=== PATIENT | male | born 1990 | race Caucasian/White ===

== ENCOUNTER 2017-07-26 09:00 | Emergency (ER) | payer SELFPAY ==
[2017-07-26 09:12] VITALS: BP 131/69
[2017-07-26] MEDS ORDERED: lamoTRIgine 100 MG Tab PO ONE (09:25)
--- NOTE | 2017-07-26 09:34 | EDM.PDOC ---
ED HPI GENERAL MEDICAL PROBLEM - General Chief Complaint: Medication Administration Stated Complaint: MEDICATION REFILL Time Seen by Provider: 07/26/17 09:09 Source of Information: Reports: Patient, RN Notes Reviewed History Limitations: Reports: No Limitations - History of Present Illness INITIAL COMMENTS - FREE TEXT/NARRATIVE: The patient states that he has had epilepsy since 10 or 11 years old. He states that it is not known why he has epilepsy. He states that he has been on Lamictal for the past 11 years. His current dose is 300 mg BID, ordinarily prescribed by a physician in [place], however, the patient has since moved to [place]. He states that he was seen by Dr. Aleksandr Matta in a clinic on 2016, where he received a refill medication incorrectly prescribed as 250 mg BID. He states that he ran out of his Lamictal after taking his p.m. dose last night. He can refill his current prescription, however, since today is , no pharmacies are open. He is requesting this morning's and tonight's doses from us. - Related Data Allergies Allergy/AdvReac Type Severity Reaction Status Date / Time No Known Allergies Allergy Verified 07/26/17 09:08 Home Meds: Home Meds lamoTRIgine [Lamictal] 300 mg PO BID 07/26/17 [History] Past Medical History Neurological History: Reports: Seizure Social & Family History - Tobacco Use Smoking Status *Q: Current Every Day Smoker Years of Tobacco use: 10 Packs/Tins Daily: 1 - Caffeine Use Caffeine Use: Reports: Coffee, Energy Drinks, Soda, Tea - Alcohol Use Alcohol Use History: Yes Alcohol Use Frequency: Socially - Recreational Drug Use Recreational Drug Use: Yes Drug Use in Last 12 Months: Yes Recreational Drug Type: Reports: Marijuana/Hashish Recreational Drug Use Frequency: Daily - Living Situation & Occupation Living situation: Reports: Single, with Family Occupation: Employed ([employer]) ED ROS GENERAL - Review of Systems Review Of Systems: See Below Constitutional: Reports: No Symptoms HEENT: Reports: No Symptoms Respiratory: Reports: No Symptoms Cardiovascular: Reports: No Symptoms Endocrine: Reports: No Symptoms GI/Abdominal: Reports: No Symptoms : Reports: No Symptoms Musculoskeletal: Reports: No Symptoms Skin: Reports: No Symptoms Neurological: Reports: No Symptoms Psychiatric: Reports: No Symptoms Hematologic/Lymphatic: Reports: No Symptoms Immunologic: Reports: No Symptoms ED EXAM, GENERAL - Physical Exam Exam: See Below Exam Limited By: No Limitations General Appearance: Alert, WD/WN, No Apparent Distress Eye Exam: Bilateral Eye: Normal Inspection Ears: Normal External Exam, Hearing Grossly Normal Nose: Normal Inspection, No Blood Throat/Mouth: Normal Inspection, Normal Lips, Normal Voice, No Airway Compromise Head: Atraumatic, Normocephalic Neck: Normal Inspection, Full Range of Motion Respiratory/Chest: No Respiratory Distress Neurological: Alert, Normal Cognition Psychiatric: Normal Affect Skin Exam: Warm, Dry, Intact, Normal Color Course - Vital Signs Last Recorded V/S: Last Vital Signs Temp 36.8 C 07/26/17 09:09 Pulse 79 07/26/17 09:09 Resp 18 07/26/17 09:09 BP 131/69 07/26/17 09:09 Pulse Ox 98 07/26/17 09:09 - Orders/Labs/Meds Meds: Medications Discontinued Medications Generic Name Dose Route Start Last Admin Trade Name Freq PRN Reason Stop Dose Admin Lamotrigine 600 mg 07/26/17 09:25 Lamotrigine PO 07/26/17 09:26 ONETIME ONE - Re-Assessments/Exams Free Text/Narrative Re-Assessment/Exam: 07/26/17 09:27 I have ordered Lamictal 600 mg. The patient will take 300 mg now, then the other 300 mg tonight. Since he can refill his current prescription for Lamictal , he can do so in the morning. Additionally, I will refer him to Dr. Rowe in the clinic. Departure - Departure Time of Disposition: 09:27 Disposition: Home, Self-Care 01 Condition: Good Clinical Impression: Medication requested - Discharge Information Referrals: PCP,None [Primary Care Provider] - Omar Do [Physician] - Additional Instructions: You were seen in the emergency room after running out of your Lamictal last night. You were given your morning dose of Lamictal in the ER, plus tonight's dose to take home. Refill your current prescription for Lamictal first thing tomorrow morning. Follow-up with Dr. Do in the clinic, to establish a primary care physician. If any other problems, please do not hesitate to return to the ER.
== END 2017-07-26 09:40 | disposition home or self-care (01) ==
LOC: JD.ED 09:00
DX: Z76.0 Encounter for issue of repeat prescription (principal); F17.210 Nicotine dependence, cigarettes, uncomplicated
CPT/HCPCS: 99282; A9270

== ENCOUNTER 2017-11-30 21:47 | Emergency (ER) | payer OTHER ==
[2017-11-30 21:57] VITALS: BP 121/64
--- NOTE | 2017-11-30 22:00 | EDM.PDOC ---
ED HPI GENERAL MEDICAL PROBLEM - General Chief Complaint: General Stated Complaint: TOOK TOO MUCH MEDICATION Time Seen by Provider: 11/30/17 22:00 - History of Present Illness INITIAL COMMENTS - FREE TEXT/NARRATIVE: 27-year-old male presents emergency room after taking one extra Lamictal. He takes 300 mg twice daily. He had inadvertently took an extra dose this evening he adamantly denies any wish to harm himself and states this was purely accidental the patient is been smoking marijuana tonight. They talked to the [facility] who thought maybe he should come in and get checked. Patient is doing okay at this time. Treatments STATEMENT SERVICES REPRESENTATIVE: Reports: Other (see below) Other Treatments STATEMENT SERVICES REPRESENTATIVE: called poison control headache Pain Score (Numeric/FACES): 4 - Related Data Allergies Allergy/AdvReac Type Severity Reaction Status Date / Time No Known Allergies Allergy Verified 11/30/17 21:57 Home Meds: Home Meds lamoTRIgine [Lamictal] 300 mg PO BID 07/26/17 [History] Past Medical History - Past Health History Medical/Surgical History: Denies Medical/Surgical History Neurological History: Reports: Seizure Social & Family History - Tobacco Use Smoking Status *Q: Current Every Day Smoker Years of Tobacco use: 10 Packs/Tins Daily: 1 - Caffeine Use Caffeine Use: Reports: Coffee, Energy Drinks, Soda, Tea - Recreational Drug Use Recreational Drug Use: Yes Drug Use in Last 12 Months: Yes Recreational Drug Type: Reports: Marijuana/Hashish Recreational Drug Use Frequency: Daily - Living Situation & Occupation Living situation: Reports: Single, with Family Occupation: Employed ([employer]) ED ROS GENERAL - Review of Systems Review Of Systems: See Below Constitutional: Reports: No Symptoms HEENT: Reports: No Symptoms Respiratory: Reports: No Symptoms Cardiovascular: Reports: No Symptoms : Reports: No Symptoms Musculoskeletal: Reports: No Symptoms Neurological: Reports: No Symptoms ED EXAM, GENERAL - Physical Exam Exam: See Below Exam Limited By: No Limitations General Appearance: Alert, No Apparent Distress Eye Exam: Bilateral Eye: EOMI, Normal Inspection Ears: Normal External Exam, Normal Canal, Hearing Grossly Normal, Normal TMs Nose: Normal Inspection, Normal Mucosa Throat/Mouth: Normal Inspection, Normal Lips, Normal Gums, Normal Oropharynx, Normal Voice, No Airway Compromise Head: Atraumatic, Normocephalic Neck: Normal Inspection, Supple, Non-Tender, Full Range of Motion. No: Lymphadenopathy (L), Lymphadenopathy (R) Respiratory/Chest: No Respiratory Distress, Lungs Clear, Normal Breath Sounds Cardiovascular: Regular Rate, Rhythm, No Edema, No Murmur GI/Abdominal: Normal Bowel Sounds, Soft, Non-Tender Neurological: Other (Cranial nerves II through XII grossly intact all muscle groups are equal and appropriate bilaterally in upper and lower extremities. Cranial nerves II through XII grossly intact cerebellar testing is normal) Psychiatric: Normal Affect, Normal Mood Course - Vital Signs Last Recorded V/S: Last Vital Signs Temp 36.7 C 11/30/17 21:54 Pulse 80 11/30/17 21:54 Resp 18 11/30/17 21:54 BP 121/64 11/30/17 21:54 Pulse Ox 98 11/30/17 21:54 - Re-Assessments/Exams Free Text/Narrative Re-Assessment/Exam: 11/30/17 23:13 Case was discussed with [place] [facility] they have no concern at this point do not recommend any laboratory or monitoring evaluation. I did watch the patient for about an hour he's doing okay we'll discharge him home. Departure - Departure Time of Disposition: 23:14 Disposition: Home, Self-Care 01 Clinical Impression: Drug ingestion, accidental - Discharge Information Referrals: PCP,None [Primary Care Provider] - Forms: ED Department Discharge Additional Instructions: Return to the emergency room with any questions problems worsening symptoms. Resume your regular routine medications.
== END 2017-11-30 23:30 | disposition home or self-care (01) ==
LOC: JD.ED 21:47
DX: T42.6X1A Poisoning by other antiepileptic and sedative-hypnotic drugs, accidental (unintentional), initial encounter (principal); F17.210 Nicotine dependence, cigarettes, uncomplicated
CPT/HCPCS: 99283; 99284